=== PATIENT | male | born 1970 | race Caucasian/White ===

== ENCOUNTER 2016-11-20 17:09 | Emergency (ER) | payer OTHER ==
[~2016-11-20] VITALS: Ht 177.8 cm; Wt 158.8 kg
[2016-11-20 17:28] VITALS: BP 185/92
--- NOTE | 2016-11-20 21:58 | NUR ---
PATIENT LEFT WITHOUT BEING SEEN BY DR. JARVIS. NO FURTHER CARE PROVIDED FOR PATIENT.
--- NOTE | 2016-11-20 21:58 | NUR ---
Natalya ornelas in ED - 11/20/16 at 2210 by ARNALDO PATIENT LEFT WITHOUT BEING SEEN BY DR. BRANNON. NO FURTHER CARE PROVIDED FOR PATIENT.
== END 2016-11-20 21:58 | disposition left against medical advice (07) ==
LOC: MED 17:09
DX: M79.605 Pain in left leg (principal); M79.604 Pain in right leg; E11.9 Type 2 diabetes mellitus without complications; I10 Essential (primary) hypertension; J45.909 Unspecified asthma, uncomplicated; Z53.21 Procedure and treatment not carried out due to patient leaving prior to being seen by health care provider